=== PATIENT | male | born 1965 | race Caucasian/White ===

== ENCOUNTER → 2021-01-23 12:57 | Outpatient (CLI) | payer OTHER, SELFPAY ==
--- NOTE | 2021-01-23 13:04 | CT_ITS ---
STUDY: CTA RIGHT UPPER EXTREMITY REASON FOR EXAM: Male, 55 years old. PAIN AND PARASTHESIA RADIATION DOSAGE (If Supplied By Facility): CTDIvol = ( 28.91 ) mGy, DLP = ( 1284.03 ) mGycm TECHNIQUE: Axial CT angiography, multi-detector data acquisition was obtained from the neck base through the hands following intravenous administration of IV 100mL Isovue-300. 2.5 mm axial images and MIP images were reconstructed from the axial data set. Post-processing of the angiographic images was performed, with multiplanar reformation and 3D reconstruction. Individualized dose optimization techniques were used for this CT. COMPARISON: None. FINDINGS: RIGHT UPPER EXTREMITY: Normal brachial trifurcation. Normal radial artery, continuous with the palmar arch, without atherosclerotic plaque formation, luminal stenosis or aneurysm. Normal ulnar artery, continuous with the palmar arch, without atherosclerotic plaque formation, luminal stenosis or aneurysm. Normal interosseous artery, continuous to the wrist, without atherosclerotic plaque formation, luminal stenosis or aneurysm. Normal visualized deep and superficial palmar arches and digital arteries. Normal osseous, muscular and subcutaneous structures in the right upper extremity. CT/Extremity Upper W/WO Contrast IMPRESSION: Normal right upper extremity CTA. Electronically Signed: Ministerio Zamudio MD at 18:26 EDT Tel , Service support ,
[2021-01-23 13:26] LABS: CREATININE FINGERSTICK 1.2 mg/dL (0.70-1.30); EGFR FINGERSTICK > 60.0000 mL/min (>60)
== END ==
PROVIDERS: PCP Family Medicine; Referring Provider Specialist; Visit Provider Specialist
DX: M79.641 Pain in right hand (principal); R20.2 Paresthesia of skin
CPT/HCPCS: 73202; Q9967